=== PATIENT | male | born 1980 | race Caucasian/White ===

== ENCOUNTER 2018-08-21 15:34 | Outpatient (CLI) ==
[2015-06-25 16:54] VITALS: BMI 43.6
--- NOTE | 2018-08-22 09:19 | DI ---
EXAM: Two views of the chest. History: Chest pain. Findings: Heart is mildly enlarged. No focal consolidation. No appreciable pleural fluid and no pn eumothorax. No acute osseous abnormalities. Impression: Mild cardiomegaly without acute disease the chest
== END 2018-08-21 15:35 | disposition home or self-care (01) ==
LOC: RAD 15:34
PROVIDERS: ATTEND Physician Assistant
DX: R07.9 Chest pain, unspecified (principal)
CPT/HCPCS: 93005; 93010